=== PATIENT | female | born 1980 | race Caucasian/White ===

== ENCOUNTER 2023-06-26 16:12 | Emergency (ER) | payer MEDICAID ==
[~2023-06-26] VITALS: Ht 157.5 cm; Wt 99.8 kg
[2023-06-26 16:28] VITALS: BP_SYST 115; PULSE 106; RESP 15; TEMP 97.6; O2SAT 100
== END 2023-06-26 17:10 | disposition left against medical advice (07) ==
LOC: SED 16:12
DX: H47.10 Unspecified papilledema (principal); Z53.21 Procedure and treatment not carried out due to patient leaving prior to being seen by health care provider
CPT/HCPCS: 99281